=== PATIENT | male | born 1940 | race African-American/Black ===

== ENCOUNTER 2020-05-15 12:54 | Emergency (ER) | payer OTHER, MEDICAID ==
[~2020-05-15] VITALS: Ht 182.9 cm; Wt 78.0 kg
[2020-05-15] MEDS ORDERED: ONDANSETRON HCL 4MG/2ML INJ IV ONE (14:00)
[2020-05-15] MEDS ORDERED: DEXTROSE 50% WATER 50ML SYRINGE IV ONE (14:00)
[2020-05-15 14:19] LABS: BASOPHILS % 0.4 % (0.0-2.0); EOSINOPHILS % 0.1 % (0.0-5.0); HEMATOCRIT. 31.8 % (42.0-52.0); HEMOGLOBIN. 9.9 g/dL (14.0-18.0); LYMPHOCYTES % 10.3 % (20.0-50.0); MEAN CORPUSCULAR HEMOGLOBIN 29.8 pg (28.0-32.0); MEAN CORPUSCULAR VOLUME 96.2 fL (80.0-94.0); MEAN PLATELET VOLUME 8.3 fl (7.4-10.4); MONOCYTES % 3.7 % (2.0-8.0); NEUTROPHILS % 85.5 % (40.0-76.0); PLATELET 267 x1000/uL (130-400); RED BLOOD CELL COUNT 3.31 mill/uL (4.7-6.1); RED CELL DISTRIBUTION WIDTH 14.9 % (11.6-14.6)
[2020-05-15 14:25] LABS: CHLORIDE 109 mEq/L (98-107); CLARITY URINE CLEAR (CLEAR); COLOR URINE YELLOW (YELLOW); KETONES URINE NEGATIVE (NEGATIVE); LEUKOCYTE ESTERASE URINE TRACE (NEGATIVE); NITRITE URINE NEGATIVE (NEGATIVE); OCCULT BLOOD URINE NEGATIVE (NEGATIVE); PROTEIN URINE 3+ (NEGATIVE); SPECIFIC GRAVITY URINE 1.016 (1.005-1.030); UROBILINOGEN URINE 0.2 E.U./dL (0.2-1.0)
[2020-05-15 14:36] LABS: PARTIAL THROMBOPLASTIN TIME 23.5 sec (23.4-31.0)
[2020-05-15] MEDS ORDERED: SODIUM POLYSTYRENE SULFONATE 15 G/60 ML BOT PO ONE (15:30)
[2020-05-15] MEDS ORDERED: SODIUM BICARBONATE 8.4% 1 MEQ/ML 50ML SYR IV ONE (15:30)
[2020-05-15] MEDS ORDERED: CEFTRIAXONE 1 G PREMIX 50 ML IV ONE (16:15)
[2020-05-15] MEDS ORDERED: CLONIDINE 0.1MG TABLET PO ONE (17:30)
[2020-05-15 19:28] VITALS: BP 158/84
== END 2020-05-15 19:43 | disposition short-term general hospital (02) ==
LOC: ER 12:54 → CANBEDREQ 20:49
DX: E16.2 Hypoglycemia, unspecified (principal); N17.9 Acute kidney failure, unspecified; I12.0 Hypertensive chronic kidney disease with stage 5 chronic kidney disease or end stage renal disease; N18.6 End stage renal disease; D64.9 Anemia, unspecified; N39.0 Urinary tract infection, site not specified
CPT/HCPCS: 36415; 70450; 71045; 80053; 81003; 82962; 83880; 84484; 85025; 85610; 85730; 87086; 93005; 96365; 96375; 99285; J2405; J3490

== ENCOUNTER 2024-05-18 06:53 | Emergency (ER) | payer OTHER, MEDICAID ==
[~2024-05-18] VITALS: Ht 175.3 cm; Wt 77.0 kg
[2024-05-18 06:56] VITALS: O2SAT 99
[2024-05-18] MEDS: LIDOCAINE 5% PATCH TOP ONE (07:11)
[2024-05-18] MEDS ORDERED: LIDO700A30 TP (10:14)
[2024-05-18 10:38] VITALS: BP 145/68; PULSE 60; RESP 12; TEMP 36.8; O2SAT 100
== END 2024-05-18 11:05 | disposition home or self-care (01) ==
LOC: ER 06:53
DX: M79.622 Pain in left upper arm (principal); I12.0 Hypertensive chronic kidney disease with stage 5 chronic kidney disease or end stage renal disease; E11.22 Type 2 diabetes mellitus with diabetic chronic kidney disease; N18.6 End stage renal disease; Z98.890 Other specified postprocedural states
CPT/HCPCS: 93922; 99284

== ENCOUNTER 2024-11-17 09:48 | Emergency (ER) | payer OTHER, MEDICAID ==
[~2024-11-17] VITALS: Ht 175.3 cm; Wt 70.0 kg
[~2024-11-17 09:48] MED LIST: LIDO700A30 TP
[2024-11-17 09:51] VITALS: TEMP 36.6; O2SAT 98
[2024-11-17] MEDS: ONDANSETRON HCL 4MG/2ML INJ IV ONE (10:32)
[2024-11-17 10:38] LABS: BASOPHILS % 0.7 % (0.0-2.0); EOSINOPHILS % 0.9 % (0.0-5.0); HEMATOCRIT. 35.5 % (42.0-52.0); HEMOGLOBIN. 11.3 g/dL (14.0-18.0); LYMPHOCYTES % 16.0 % (20.0-50.0); MEAN PLATELET VOLUME 8.8 fl (7.4-10.4); MONOCYTES % 7.8 % (2.0-8.0); NEUTROPHILS % 74.6 % (40.0-76.0); PLATELET 208 x1000/uL (130-400); RED BLOOD CELL COUNT 3.45 mill/uL (4.7-6.1); RED CELL DISTRIBUTION WIDTH 16.9 % (11.6-14.6)
[2024-11-17 10:50] LABS: UREA NITROGEN BLOOD 24 mg/dL (9-23)
[2024-11-17 10:52] LABS: ASPARTATE AMINOTRANSFERASE 18 IU/L (<34); BILIRUBIN DIRECT < 0.1 mg/dL (<=3.0); BILIRUBIN TOTAL 0.2 mg/dL (0.1-1.0); PROTEIN TOTAL 7.2 g/dL (6.0-8.3)
[2024-11-17 11:11] LABS: CREATININE 8.5 mg/dL (0.6-1.3)
[2024-11-17 11:14] LABS: INR 1.0
[2024-11-17] MEDS ORDERED: METO-293 MT (11:56)
[2024-11-17 12:39] VITALS: BP 134/68; PULSE 77; RESP 16; O2SAT 98
== END 2024-11-17 12:42 | disposition home or self-care (01) ==
LOC: ER 09:51 → CANBEDREQ 11:59 → ER 12:42
DX: N18.6 End stage renal disease (principal); R53.1 Weakness; F10.90 Alcohol use, unspecified, uncomplicated; R11.0 Nausea; Z86.73 Personal history of transient ischemic attack (TIA), and cerebral infarction without residual deficits; Z91.158 Patient's noncompliance with renal dialysis for other reason; Z99.2 Dependence on renal dialysis; Y90.9 Presence of alcohol in blood, level not specified
CPT/HCPCS: 99285; 74176; 96374; 80076; 80048; 83690; 83735; 85025; 85610; 36415; 93005; J2405

== ENCOUNTER 2024-12-18 08:24 | Emergency (ER) | payer OTHER, MEDICAID ==
[~2024-12-18] VITALS: Ht 175.3 cm; Wt 69.0 kg
[~2024-12-18 08:24] MED LIST changes: +METO-293 MT
[2024-12-18 08:30] VITALS: O2SAT 98
[2024-12-18 09:08] LABS: BASOPHILS % 0.7 % (0.0-2.0); EOSINOPHILS % 1.2 % (0.0-5.0); HEMATOCRIT. 34.0 % (42.0-52.0); HEMOGLOBIN. 11.0 g/dL (14.0-18.0); LYMPHOCYTES % 16.7 % (20.0-50.0); MEAN PLATELET VOLUME 8.1 fl (7.4-10.4); MONOCYTES % 6.4 % (2.0-8.0); NEUTROPHILS % 75.0 % (40.0-76.0); PLATELET 236 x1000/uL (130-400); RED BLOOD CELL COUNT 3.39 mill/uL (4.7-6.1); RED CELL DISTRIBUTION WIDTH 15.8 % (11.6-14.6)
[2024-12-18] MEDS ORDERED: DILTIAZEM HCL 30MG TABLET PO ONE (09:15)
[2024-12-18] MEDS: DILTIAZEM HCL 5MG/ML 5ML VIAL IV ONE (09:27)
[2024-12-18 09:36] LABS: TROPONIN I HIGH SENSITIVITY 27 ng/L (3.0-53); UREA NITROGEN BLOOD 43 mg/dL (9-23)
[2024-12-18] MEDS: DILTIAZEM HCL 30MG TABLET PO SCH (09:36)
[2024-12-18 09:38] LABS: ASPARTATE AMINOTRANSFERASE 13 IU/L (<34); BILIRUBIN DIRECT < 0.1 mg/dL (<=3.0); BILIRUBIN TOTAL 0.2 mg/dL (0.1-1.0)
[2024-12-18 09:39] LABS: PROTEIN TOTAL 7.7 g/dL (6.0-8.3)
[2024-12-18 09:41] LABS: CREATININE 11.5 mg/dL (0.6-1.3)
[2024-12-18 11:36] VITALS: BP 143/78; PULSE 71; RESP 12; TEMP 36.4; O2SAT 99
== END 2024-12-18 12:01 | disposition short-term general hospital (02) ==
LOC: ER 08:24 → CMPBEDREQ 13:00
DX: R53.1 Weakness (principal); F41.9 Anxiety disorder, unspecified; N18.6 End stage renal disease; I47.19 Other supraventricular tachycardia; I67.82 Cerebral ischemia; I25.2 Old myocardial infarction; Z86.73 Personal history of transient ischemic attack (TIA), and cerebral infarction without residual deficits; Z86.79 Personal history of other diseases of the circulatory system; Z99.2 Dependence on renal dialysis
CPT/HCPCS: 99291; 96374; 70450; 80076; 80048; 85025; 84484; 36415; 71045; 93005; J3490

== ENCOUNTER 2025-02-09 15:29 | Emergency (ER) | payer OTHER, MEDICAID ==
[~2025-02-09] VITALS: Ht 180.3 cm; Wt 85.0 kg
[2025-02-09 15:31] VITALS: BP 128/86; PULSE 88; RESP 16; TEMP 98; O2SAT 98
== END 2025-02-09 19:30 | disposition home or self-care (01) ==
LOC: ER 15:29
DX: R53.1 Weakness (principal); R53.83 Other fatigue; Z86.73 Personal history of transient ischemic attack (TIA), and cerebral infarction without residual deficits; Z99.2 Dependence on renal dialysis
CPT/HCPCS: 93005; 99283